=== PATIENT | male | born 1980 | race Two or more races ===

== ENCOUNTER 2025-04-12 09:58 | Emergency (ER) | payer MEDICAID, SELFPAY ==
[2025-04-12 10:09] VITALS: BP 163/83; PULSE 106; RESP 19; TEMP 36.6; O2SAT 98; BMI 32.7
--- NOTE | 2025-04-12 10:17 | XR_ITS ---
Examination: CT lumbar spine, without contrast. 2-D sagittal reconstructions. 2-D coronal reconstructions. 3-D reconstructions. Date and time of exam:April 12, 2025 1114 hours INDICATIONS: Low back pain years, disc surgery 2020, more prominent lower back pain for last 3 weeks CTDI: vol (mGy):31.8. DLP: (mGycm):1094. Technique: Multiple 1.25 mm axial sections of the lumbar spine without intravenous contrast have been obtained. 2-D sagittal and coronal reconstructions have been obtained. 3-D reconstructions have been obtained. Low dose protocols were performed. One or more of the following dose reduction techniques were used; automated exposure control, adjustment of the mA and/or KV according to patient size, use of iterative reconstruction technique. Findings: Adequate alignment lumbar vertebral bodies on the lateral view No lumbar fracture. Advanced disc narrowing L5-S1. No spondylolisthesis. Lumbar pedicles, laminae transverse and posterior spinous processes intact L5-S1 8 mm left paracentral disc bulge displacing the left S1 nerve root L4-L5 moderate to severe overall spinal stenosis, axial image 95, 5 mm central lumbar disc bulge, facet arthropathy and thickening of ligamenta flavum circumferentially narrowing the thecal sac L3-L4 4 mm central lumbar disc bulge L2-L3 no disc protrusion L1-L2 no disc protrusion IMPRESSION: Advanced degenerative disc disease L5-S1 L5-S1 8mm left paracentral disc bulge displacing the left S1 nerve root. L4-L5 moderate to severe overall spinal stenosis L3-L4 4 mm subpleural lumbar disc bulge Consider elective MRI lumbar spine without contrast follow-up
--- NOTE | 2025-04-12 10:18 | PD.EDRME ---
Rapid Medical Screening Exam RME Arrival date/time: 04/12/25 09:58 44-year-old male with previous lumbar surgery secondary to herniated disc in 2020 presents with concerns for lower back pain and blood in his stool Chief Complaint: Back Pain/Injury Time Seen by Provider: 04/12/25 10:04 Vital signs: Vital Signs Temperature 97.8 F 04/12/25 10:09 Pulse Rate 106 H 04/12/25 10:09 Respiratory Rate 19 04/12/25 10:09 Blood Pressure 163/83 H 04/12/25 10:09 Pulse Oximetry (%) 98 04/12/25 10:09 Oxygen Delivery Method Room Air 04/12/25 10:09
[2025-04-12 10:44] LABS: Basophils # (Auto) 0.1 Thou/mm3 (0.0-0.2); Basophils % (Auto) 1 % (0-2.5); Eosinophils # (Auto) 0.4 Thou/mm3 (0.0-0.5); Eosinophils % (Auto) 4 % (0-10); Hematocrit 49.8 % (41.0-53.0); Hemoglobin 16.8 g/dL (13.5-16.0); Immature Granulocytes Auto 0.07 Thou/mm3 (0.00-0.00); Lymphocytes # (Auto) 2.8 Thou/mm3 (1.0-4.8); Lymphocytes % (Auto) 25 % (10-50); Mean Corpuscular HGB Conc 33.7 g/dl (31.0-37.0); Mean Corpuscular Hemoglobin 29.4 pg (25.0-35.0); Mean Corpuscular Volume 87 fL (80-100); Monocytes # (Auto) 0.4 Thou/mm3 (0.0-0.8); Monocytes % (Auto) 4 % (0-12); Neutrophils # (Auto) 7.4 Thou/mm3 (1.8-7.7); Neutrophils % (Auto) 66 % (37-80); Nucleated Red Blood Cell # 0.00 Thou/mm3 (0.00-0.00); Nucleated Red Blood Cell % 0 /100 WBC (0); Platelet Count 227 Thou/mm3 (140-440); RDW Standard Deviation 39.3 fL (35.1-43.9); Red Blood Count 5.71 Miln/mm3 (4.50-5.90); White Blood Count 11.3 Thou/mm3 (3.8-10.6)
[2025-04-12 10:54] LABS: Sed Rate (ESR) 3 mm/hr (0-15)
[2025-04-12 10:59] LABS: INR 1.0 (0.9-1.3); Partial Thromboplastin Time 28.5 Seconds (22.0-36.0); Prothrombin Time 11.4 Seconds (9.0-12.2)
[2025-04-12 11:02] LABS: Alanine Aminotransferase 67 U/L (10-49); Albumin, Serum 4.7 gm/dL (3.5-5.0); Albumin/Globulin Ratio 2.1 (1.2-2.2); Alkaline Phosphatase 114 U/L (46-116); Anion Gap 11 (7-16); Aspartate Amino Transferase 37 U/L (0-34); BUN/Creatinine Ratio 13 Ratio (12-20); Bilirubin,Total 0.6 mg/dL (0.3-1.2); Blood Urea Nitrogen 14 mg/dL (9-23); C-Reactive Protein < 0.5 mg/dL (0.0-0.9); Calcium 9.6 mg/dL (8.3-10.6); Calcium (Corrected) 9.6 mg/dL (8.5-10.1); Carbon Dioxide 24.3 mMol/L (20.0-31.0); Chloride 108 mMol/L (98-107); Creatinine (Component) 1.1 mg/dL (0.6-1.3); Estimated Creatinine Clearance 105.4 mL/min (>60); Globulin 2.2 gm/dL (2.3-3.5); Glucose 161 mg/dL (74-106); Lipase 40 U/L (12-53); Osmolality,Calculated 288 (275-295); Potassium 4.0 mMol/L (3.4-5.1); Sodium 143 mMol/L (136-145); Total Protein 6.9 gm/dL (5.7-8.2); eGFR > 60 See Note
[2025-04-12 11:52] LABS: Collection Type, Urine Clean Catch
[2025-04-12 12:56] LABS: Amphetamine/Methamp Scrn,U Negative (Negative); Barbiturate Screen,Urine Negative (Negative); Benzodiazepines Screen,Urine Negative (Negative); Benzoylecgonine Screen, Ur Negative (Negative); Fentanyl Screen,Urine Negative (Negative); Opiate Screen,Urine Negative (Negative); THC Screen,Urine Positive (Negative)
[2025-04-12 13:19] LABS: Bilirubin,Urine Negative (Negative); Blood,Urine Trace (Negative); Clarity,Urine Clear (Clear/Hazy); Color,Urine Lt-Yellow (Lt Yel-Yel); Culture Indicated,Urine Not Indicated; Glucose, Urine Negative (Negative); Ketones,Urine Negative (Negative); Leukocyte Esterase,Urine Negative (Negative); Nitrite,Urine Negative (Negative); PH,Urine 5.5 (5.0-7.0); Protein,Urine Negative (Neg - Trace); RBC,Urine 1 /hpf (0-3); Specific Gravity,Urine 1.022 (1.001-1.035); Squamous Epithelial Cell,Urine < 1 /hpf (0-5); Urobilinogen,Urine Negative mg/dL (0.0-1.0); WBC,Urine 1 /hpf (0-5)
[2025-04-12 14:38] VITALS: BP 150/104; PULSE 84; RESP 18; TEMP 37.1; O2SAT 98
--- NOTE | 2025-04-12 15:29 | EDNOTE_ITS ---
ED Back Injury Pain RME/HPI General Chief Complaint: Back Pain/Injury Stated Complaint: LOWER BACK PAIN X 3 WKS; HX BACK SURGERY 2020 Time Seen by Provider: 04/12/25 10:04 Arrival date/time: 04/12/25 09:58 RME / HPI RME / HPI Narrative: 44-year-old male patient with significant history of lower back surgery, came in for evaluation regarding back pain. Patient has been having lower back pain for the last 3 weeks, described as dull ache, severity moderate. Patient denies any bladder incontinence denies any bowel incontinence denies any saddle anesthesia. Patient denies any weakness of bilateral lower extremity. Patient had back surgery 4 years ago. Patient is ambulatory. Denies any recent trauma or fall denies any fever. Related Data Previous Rx's ?Medication ?Instructions ?Recorded acetaminophen 300 mg-codeine 30 mg 1 tab PO BID PRN pa in #20 tabs 04/12/25 tablet acetaminophen 300 mg-codeine 30 mg 1 tab PO TID PRN pa in #21 tabs 04/12/25 tablet methocarbamol 500 mg tablet 500 mg PO TID PRN pain #20 tabs 04/12/25 Review of Systems Review of Systems Narrative Review of Systems: Review of system reviewed and within normal limits except mentioned in HPI ED Exam Narrative Physical exam: VITAL SIGNS: Reviewed. GENERAL APPEARANCE: Alert and interactive, follows commands, no acute distress, HEAD AND FACE: Non-traumatic. ENT: PERRL, pink conjunctivitis, eyelid no trauma, Mucous membrane moist. NECK: Supple, nontender, no nuchal rigidity. CHEST: No tenderness, no crepitus, no paradoxical movement, no retractions. LUNGS: Clear, well ventilated, symmetric, no rales, no wheezing, no ronchi, no stridor, good breath sounds bilaterally. HEART: Regular rate, regular rhythm, no murmur, no gallops. ABDOMEN: Soft, positive bowel sounds, nondistended, no guarding, nontender, no rebound, no masses, RECTAL: Deferred. GENITAL: Deferred. NEUROLOGICAL: Gross motor function intact sensory function intact, Appropriate for age. MUSCULOSKELETAL: low back tenderness, with midline scar no redness noted no masses palpated, full range of motion. EXTREMITIES: Nontender, full range of motion. SKIN: Color pink, dry, no rash, no lacerations, no abrasions, no contusions. LYMPHATICS: Deferred. Course Quality Measures none Orders Category Date Time Status CT lumbar spine wo con Stat Exams 04/12/25 10:17 Completed CBC Stat Lab 04/12/25 10:30 Completed CRP [C-Reactive Protein] Stat Lab 04/12/25 10:30 Completed Comprehensive Metabolic Panel Stat Lab 04/12/25 10:30 Completed Drug Screen,Urine Stat Lab 04/12/25 11:41 Completed ESR [Sed Rate (ESR)] Stat Lab 04/12/25 10:30 Completed Lipase Stat Lab 04/12/25 10:30 Completed PT [Prothrombin Time with INR] Stat Lab 04/12/25 10:30 Completed PTT [Partial Thromboplastin Time] Stat Lab 04/12/25 10:30 Completed UA, C/S IF [Urinalysis, C/S if Indicated] Stat Lab 04/12/25 11:41 Completed Vital Signs Vital signs: Vital Signs Temperature 97.8 F 04/12/25 10:09 Pulse Rate 106 H 04/12/25 10:09 Respiratory Rate 19 04/12/25 10:09 Blood Pressure 163/83 H 04/12/25 10:09 Pulse Oximetry (%) 98 04/12/25 10:09 Oxygen Delivery Method Room Air 04/12/25 10:09 Back Pain / Injury MDM Narrative MDM Narrative:: 44-year-old male patient with significant history of lower back surgery, came in for evaluation regarding back pain. Patient has been having lower back pain for the last 3 weeks, described as dull ache, severity moderate. Patient denies any bladder incontinence denies any bowel incontinence denies any saddle anesthesia. Patient denies any weakness of bilateral lower extremity. Patient had back surgery 4 years ago. Patient is ambulatory. Denies any recent trauma or fall denies any fever. Patient's laboratory workup all came back unremarkable. CT scan of the lumbar spine Advanced degenerative disc disease L5-S1 L5-S1 8mm left paracentral disc bulge displacing the left S1 nerve root. L4-L5 moderate to severe overall spinal stenosis L3-L4 4 mm subpleural lumbar disc bulge Consider elective MRI lumbar spine without contrast follow-up Patient was given a copy of his lumbar spine CT. Advised him to closely follow- up with spine surgeon in [place] who did the surgery 4 years ago. Patient agree s with the plan Patient data External records reviewed:: None Clinical information provided by:: patient and family Social determinants that could affect healthcare access:: none Patient has the following chronic illnesses:: None How is presenting disease/condition affected by chronic disease/condition?: no chronic disease Evaluation data The following diagnostics were reviewed and interpreted by me:: radiology exam(s) Lab and/or radiology exams considered but not ordered:: None Interpretation Summary: See results MDM Medications / Prescriptions Medications or Prescriptions considered but not ordered:: None Medication administrations:: None Consultations Consultation(s) initiated? (list below): No Diagnosis Differential diagnosis back pain/injury: lumbar radiculopathy and sciatica Most likely diagnosis given after review of the tests above:: Lumbar disc disease Admission Indicated Admission indicated?: not indicated Admission Request Was there a request for admission?: No Disposition Plan Disposition Plan: Discharge Discharge Attestation Discharge Attestation: The patient and all family members were given an opportunity to ask questions and understood the discharge instructions. Discharge instructions specifically effects, indications for sooner follow up or return to the emergency department, and the expected course of current diagnosis. Patient condition: Stable Discharge Plan Plan Patient Disposition: HOME (Self Care) Discharge Disposition comment: stable Prescriptions/Referrals Prescriptions/Med Rec: New acetaminophen-codeine 300-30 mg tablet 1 tab PO BID PRN (Reason: pain) Qty: 20 0RF methocarbamol 500 mg tablet 500 mg PO TID PRN (Reason: pain) Qty: 20 0RF acetaminophen-codeine 300-30 mg tablet 1 tab PO TID PRN (Reason: pain) Qty: 21 0RF Referrals: Michael Parish PA-C [Primary Care Provider] - In 1 week Problem List Clinical Impression: Lumbar disc disease Patient/Caregiver Discharge Instructions Discharge Activity: activity as tolerated Education Materials: Relieving Back Pain Additional Instructions: Thank you for the opportunity for serving you today. You are stable for discharged . You are advised to: Follow-up with your PCP in 1 to 2 days and as per referral to your spine surgeon Return to ED for worsening of symptoms Increase oral fluids Take medication as prescribed Print Language: Israeli Stand Alone Forms: Eli Award Info., Patient Portal Info Letter
== END 2025-04-12 15:44 | disposition home or self-care (01) ==
PROVIDERS: Nurse Practitioner Primary Care; Emergency Provider Emergency Medicine; PCP Family Medicine
DX: M51.369 Other intervertebral disc degeneration, lumbar region without mention of lumbar back pain or lower extremity pain (principal)
CPT/HCPCS: 36415; 72131; 80053; 80307; 81001; 83690; 85025; 85610; 85652; 85730; 86140; 99284